=== PATIENT | female | born 1990 | race Caucasian/White ===

== ENCOUNTER 2019-01-18 06:50 | Observation (INO) ==
--- NOTE | 2019-01-18 07:23 | PROVIDER DOCUMENTATION ---
[id number] Abuse/Overdose - General Chief Complaint: Overdose Stated Complaint: overdose Time Seen by Provider: 01/18/19 07:16 Source: EMS Allergies/Adverse Reactions: Allergies Allergy/AdvReac Type Severity Reaction Status Date / Time No Known Allergies Allergy Verified 06/18/18 11:05 Home Medications: Home Medication List Medication Instructions Recorded Confirmed Last Taken Type Cephalexin [Keflex] 500 mg PO TID #20 capsule 06/01/17 Unknown Rx Promethazine [Phenergan] 25 mg PO Q6H PRN PRN #20 tablet 06/01/17 Unknown Rx - History of Present Illness-Drug/Alcohol Nature of Presenting Problem: some one was going to their car to go to work only to find someone od in the car.brought by ems fire gave nasal narcan plus two mg enroute responded she mumbled she had taken 3 oxycontin This episode of drinking or use began:: 1/2 hour ago Severity: reports: moderate Situational problems related to:: reports: N/A Psychiatric Complaints: reports: other (hx of opiate abuse) Any injuries associated with this episode of intoxication?: No Similar Symptoms Previously?: Yes Recently seen or treated by another doctor?: No Review of Systems - Adult - REVIEW OF SYSTEMS - ADULT ROS:: unobtainable per condition Constitutional: reports: no symptoms reported Past History - Adult - PAST MEDICAL HISTORY-ADULT Review of Records: reports: Old Records Reviewed, Nursing Assessment Review, Medications Reviewed, Social history reviewed & non-contributory. - IMMUNIZATION STATUS Childhood Immunizations: See Nurse Assessment Flu Vaccine: See Nurse Assessment Physical Exam-General - PHYSICAL EXAM-ADULT Initial Vital Signs Reviewed: Yes - CONSTITUTIONAL General Appearance: obtunded - EYES Eyes: PERRL/EOMI, other (pinpoint pupils) - HEAD, EARS, NOSE, MOUTH & THROAT HENMT: normocephalic/atraumatic - NECK Neck: non-tender, full range of motion, supple - RESPIRATORY Respiratory: lungs clear - CARDIOVASCULAR Cardiovascular: regular rate, rhythm - GASTROINTESTINAL (ABDOMEN) Abdominal Exam: soft, other (striae) - LYMPHATIC Lymphatic: no adenopathy - MUSCULOSKELETAL Back Exam: normal inspection Extremity: non-tender - SKIN Integumentary: normal color, normal turgor - NEUROLOGIC Neurologic: grossly normal - PSYCHIATRIC Psych/Mental Status: depressed affect Progress - PLAN OF CARE/RESULTS Progress/Plan/Lab Results: Vital Signs - 8 hr 01/18/19 06:53 Temperature 96.3 F L Pulse Rate 80 Respiratory Rate 16 Blood Pressure 117/89 O2 Sat by Pulse Oximetry 98 Laboratory Results - last 24 hr 01/18/19 01/18/19 01/18/19 06:57 07:04 07:31 WBC 9.88 RBC 4.67 Hgb 14.0 Hct 41.8 MCV 89.5 MCH 30.0 MCHC 33.5 RDW Std Deviation 13.9 Plt Count 292 MPV 9.7 Immature Gran % (Auto) 0.1 Neut % (Auto) 33.3 L Lymph % (Auto) 54.3 H Harvey % (Auto) 10.3 H Eos % (Auto) 1.6 Baso % (Auto) 0.4 Immature Gran # (Auto) 0.01 Neut # (Auto) 3.29 Lymph # (Auto) 5.36 H Harvey # (Auto) 1.02 H Eos # (Auto) 0.16 Baso # (Auto) 0.04 POC Glucose 101 Urine Opiates Screen PRESUMPTIVE POSITIVE A Ur Oxycodone Screen NONE DETECTED Urine Methadone Screen NONE DETECTED U Propoxyphene Qual NONE DETECTED Ur Barbituates Screen NONE DETECTED Ur Tricyclics Screen NONE DETECTED Ur Phencyclidine Scrn NONE DETECTED Ur Amphetamines Screen PRESUMPTIVE POSITIVE A U Methamphetamines Scrn PRESUMPTIVE POSITIVE A U Benzodiazepines Scrn PRESUMPTIVE POSITIVE A Urine Cocaine Screen NONE DETECTED U Cannabinoids Screen PRESUMPTIVE POSITIVE A Orders Category Date Time Status Cardiac Monitoring DIRECTED Care 01/18/19 07:19 Active Gaxiola Cath Insertion ORDERED Care 01/18/19 07:02 Active Nursing- Obtain EKG ONCE Care 01/18/19 07:17 Active Saline Loc NOW Care 01/18/19 07:19 Active ABG [RESP] Routine Lab 01/18/19 07:02 Ordered ACETAMINOPHEN [TDM] Stat Lab 01/18/19 07:31 Received ALCOHOL BLOOD Stat Lab 01/18/19 07:31 Received CBC WITH ELECTRONIC DIFF [HEME] Stat Lab 01/18/19 07:31 Completed CK PROFILE [SP CHEM] Stat Lab 01/18/19 07:31 Received COMPREHENSIVE METABOLIC PANEL [CHEM] Stat Lab 01/18/19 07:31 Received SALICYLATES [TDM] Stat Lab 01/18/19 07:31 Received TROPONIN T Stat Lab 01/18/19 07:[address] DRUG S[address]EN [address] Stat Lab 01/18/19 07:04 Completed Result Diagrams: 01/18/19 07:31 Departure - Departure Date of Disposition Decision: 01/18/19 Time of Disposition Decision: 08:00 DIAGNOSIS: Overdose of analgesic Disposition: ADMITTED INPATIENT 09 Certified Medical Emergency: Emergent Condition: Stable - Critical Care Note This patient required my direct & personal management of CC.: Yes Total Time (mins): 30 Critical Care Statement: This patient required my direct personal management to treat or rule out processes, the absence of which, could potentiallly result in sudden, clinically significant life or limb threatening deterioration. Attestation - Physician/ ZAINAB Attestation Patient care was provided by Advanced Practice Provider:: No The physician spent face to face time with patient:: Yes Advanced Practice Provider documentation review:: Supervising physician onsite and consulted in the evaluation and care of this patient. The physician did have a face to face encounter with the patient.
[2019-01-18 07:44] LABS: UR AMPHETAMINES QUAL PRESUMPTIVE POSITIVE (NONE DETECT); UR BARBITUATES QUAL NONE DETECTED (NONE DETECT); UR BENZODIAZEPIN QUAL PRESUMPTIVE POSITIVE (NONE DETECT); UR CANNABINOIDS QUAL PRESUMPTIVE POSITIVE (NONE DETECT); UR COCAINE QUAL NONE DETECTED (NONE DETECT); UR METHADONE QUAL NONE DETECTED (NONE DETECT); UR METHAMPHETAMINE QUAL PRESUMPTIVE POSITIVE (NONE DETECT); UR OPIATES QUAL PRESUMPTIVE POSITIVE (NONE DETECT); UR OXYCODONE QUAL NONE DETECTED (NONE DETECT); UR PCP QUAL NONE DETECTED (NONE DETECT); UR PROPOXYPHENE QUAL NONE DETECTED (NONE DETECT); UR TCA QUAL NONE DETECTED (NONE DETECT)
[2019-01-18 07:48] LABS: BASO# 0.04 X1000 (0.0-0.2); BASO% 0.4 % (0.0-0.8); EOS# 0.16 X1000 (0.0-0.7); EOS% 1.6 % (0.0-10.0); HEMATOCRIT 41.8 % (37.0-47.0); IMM GRAN# 0.01 X1000 (0.0-0.04); IMM GRAN% 0.1 % (0.0-0.5); LYMPH# 5.36 X1000 (1.2-3.4); LYMPH% 54.3 % (20.5-51.1); MCHC 33.5 g/dL (33-37); MCV 89.5 FL (81-99); MONO# 1.02 X1000 (0.11-0.59); MONO% 10.3 % (1.7-9.3); MPV 9.7 FL (7.4-10.4); NEUT# 3.29 X1000 (1.4-6.5); NEUT% 33.3 % (42.2-75.2); PLT 292 X1000 (130-400); RBC 4.67 XMIL (4.2-5.4); RDW 13.9 % (11.5-14.5); WBC 9.88 X1000 (4.8-10.8)
[2019-01-18 08:06] LABS: ACETAMINOPHEN < 1.2 ug/mL (10-30); AGAP 11; ALBUMIN 4.4 g/dL (3.5-5.0); ALKALINE PHOSPHATASE 83 U/L (32-104); BUN 14 mg/dL (8-22); CHLORIDE 105 mmol/L (98-107); COSMO 280; CREATININE 0.6 mg/dL (0.5-0.9); ESTIMATED GFR > 60; GLUCOSE 95 mg/dL (70-104); GOT 14 U/L (10-30); GPT 13 U/L (10-36); POTASSIUM 4.3 mmol/L (3.5-5.1); SALICYLATES < 3.00 mg/dL (3-10); SODIUM 140 mmol/L (136-145); TCO2 24 mmol/L (25-35); TOTAL PROTEIN 7.7 g/dL (6.3-8.3)
[2019-01-18] MEDS ORDERED: NARCAN IV ONE (08:12)
[2019-01-18] MEDS ORDERED: NS 1,000 ML IV ONE ×2 (08:13→09:04)
[2019-01-18] MEDS ORDERED: ZOFRAN IV PRN (09:59)
[2019-01-18] MEDS ORDERED: SODIUM CHLORIDE 0.9% INJ SCH (10:15)
[2019-01-18] MEDS ORDERED: PROTONIX IV SCH (10:15)
[2019-01-18 11:09] LABS: BILIRUBIN URINE 1+ (NEGATIVE); BLOOD URINE TRACE (NEGATIVE); CLARITY VERY CLOUDY (CLEAR); COLOR YELLOW; GLUCOSE URINE NEGATIVE (NEGATIVE); KETONE URINE TRACE mg/dL (NEGATIVE); LEUKOCYTES URINE 1+ (NEGATIVE); NITRITE URINE NEGATIVE (NEGATIVE); PROTEIN URINE TRACE mg/dL (NEGATIVE); UROBILINOGEN URINE 4 mg/dL
[2019-01-18 11:10] LABS: URINE BACTERIA 4+ /HFP; URINE CAST NONE SEEN /LPF; URINE EPITHELIAL CELLS <10 /HPF (<10); URINE RBC <10 /HPF (<10); URINE WBC TNTC /HPF (<10); URINE YEAST NONE SEEN /HPF
--- NOTE | 2019-01-18 11:10 | HISTORY AND PHYSICAL ---
PRIMARY CARE PROVIDER: None. CHIEF COMPLAINT: Overdose. HISTORY OF PRESENT ILLNESS: Ms. Cleveland is a 28-year-old female who carries a past medical history of opiate abuse. Her drug of choice is heroin, per her mother at the bedside. Per ED report, she was found slumped over in a car. She was brought in by EMS and was given nasal Narcan plus 2 mg en route. She told responders that she had taken 3 OxyContin. Her toxicology screen is positive for opiates, amphetamines, methamphetamines, benzodiazepines, and cannabinoids. Other laboratory data is essentially unremarkable. She was admitted to the ICU. We will continue with aggressive IV hydration. The patient is still somewhat obtunded. She does arouse with aggressive physical stimuli with a sternal rub. She mumbles. She did open her eyes. She sat up for a second and laid down and went right back to sleep. PAST MEDICAL HISTORY: Opiate abuse. Drug of choice: Heroin. PAST SURGICAL HISTORY: None. SOCIAL HISTORY: She lives in [place]. She is , though I believe they are going through divorce. She does have a boyfriend. She has 3 children, one that lives with the father in [place] and 2 that lives with their father in [place]. Per mother's report, her drug of choice is shooting up heroin and will only occasionally drink alcohol. No known tobacco use. FAMILY HISTORY: Reviewed and noncontributory. ALLERGIES: No known drug allergies. HOME MEDICATIONS: None. REVIEW OF SYSTEMS: Unable to obtain secondary to the patient being obtunded. PHYSICAL EXAMINATION: VITAL SIGNS: Temporal artery temperature 96.1 degrees, heart rate 56, respirations 20, blood pressure 108/71, O2 is 100% on room air. GENERAL: Ms. Cleveland is a 28-year-old female, who is lying in the ICU bed, sleeping, very sedated. She wakes to aggressive sternal rub. In no acute distress. HEENT: Atraumatic, normocephalic. PERRL. NECK: Supple. Trachea midline. CARDIOVASCULAR: S1, S2 appreciated. No murmurs, gallops, rubs noted. CHEST: Clear bilaterally. GASTROINTESTINAL: Soft, nontender. Hypoactive bowel sounds 4 quadrants. EXTREMITIES: Bilateral pedal pulses are palpable. No lower extremity edema or cyanosis. NEUROLOGIC: The patient is somewhat obtunded. She does awaken to an aggressive sternal rub. She did sit up on the bed, I made her aware of her surrounding, and the patient laid back down and fell back asleep. DIAGNOSTIC DATA: None. LABORATORY DATA: White count 9, hemoglobin 14, hematocrit 41, platelet count is 292,000. Sodium 140, potassium 4.3, BUN 14, creatinine 0.6, blood glucose is 95. Toxicology screen positive for opiates, amphetamines, methamphetamines, benzodiazepines, and cannabinoids. ASSESSMENT AND PLAN: 1. Drug overdose. Per emergency department report, the patient had taken 3 OxyContin. Her toxicology screen is positive for multiple medications. We will continue with aggressive IV hydration. Frequent neurological checks. Get [facility] involved for a possible rehabilitation placement if patient is agreeable. 2. Toxic metabolic encephalopathy secondary to #1. 3. Known history of intravenous heroin use. Aware. Further recommendation to follow physician evaluation and laboratory and diagnostic data. CRITICAL CARE TIME: 30 minutes. Dictated by ALYSSA Kerr for Shadi Peres MD cc: Shadi Peres MD
[2019-01-18 11:11] LABS: URINE CRYSTAL NONE SEEN /HPF; URINE SOURCE CATH
[2019-01-18] MEDS ORDERED: ROCEPHIN 1 GM in NS 50 ML IV SCH (16:30)
--- NOTE | 2019-01-18 16:35 | HISTORY AND PHYSICAL ---
HISTORY AND PHYSICAL - ADDENDUM: The patient presented obtunded. She was found in her boyfriend's car and brought to the hospital. She has a history of heroin abuse. She reports last usage 4 months ago. She was given Narcan and improved. Now, she told responders that she had taken OxyContin. She did not admit that to me. She states, though, that 2 to 3 days ago she did use methamphetamine and I think she also admits to using IV heroin or IV narcotic two days ago. Her story fluctuates to some degree. She is awake and alert, oriented now. This was an unintentional overdose or recreational overdose. This was not an attempt on her life. However, her UDS is positive for everything or multiple things, opiates, not oxycodone despite her claiming she took that, amphetamines, methamphetamines which she did admit to taking, benzo's which she did admit to taking. She said she took several bars I believe of Xanax and THC. Her exam is unremarkable. She looks like she also probably has a UTI. We will monitor her, give her supportive treatment. We discussed about drug rehab options and she has to be committed to taking it. If stable, likely discharge in the next 24 hours. cc: Shadi Peres MD
[2019-01-18 17:00] LABS: UR AMPHETAMINES QUAL PRESUMPTIVE POSITIVE (NONE DETECT); UR BARBITUATES QUAL NONE DETECTED (NONE DETECT); UR BENZODIAZEPIN QUAL PRESUMPTIVE POSITIVE (NONE DETECT); UR CANNABINOIDS QUAL PRESUMPTIVE POSITIVE (NONE DETECT); UR COCAINE QUAL NONE DETECTED (NONE DETECT); UR METHADONE QUAL NONE DETECTED (NONE DETECT); UR METHAMPHETAMINE QUAL PRESUMPTIVE POSITIVE (NONE DETECT); UR OPIATES QUAL PRESUMPTIVE POSITIVE (NONE DETECT); UR OXYCODONE QUAL NONE DETECTED (NONE DETECT); UR PCP QUAL NONE DETECTED (NONE DETECT); UR PROPOXYPHENE QUAL NONE DETECTED (NONE DETECT); UR TCA QUAL NONE DETECTED (NONE DETECT)
[2019-01-18 21:08] VITALS: BP 113/76
[2019-01-19 21:00] LABS: HIV ANTIBODY SCREEN SEE COMMENTS
== END 2019-01-18 19:55 | disposition home or self-care (01) ==
LOC: P.ED 06:50 → P.ICU 06:50
PROVIDERS: ATTEND Internal Medicine
CPT/HCPCS: 51702; 80053; 80104; 80196; 80301; 80305; 80307; 80320; 80324; 80329; 81001; 81025; 82003; 82055; 82550; 82948; 84484; 85025; 86701; 87077; 87088; 87186; 87389; 96374; 99285; C9113; G0431; G0434; G0477; G0480; G6038; G6039; G6040; J0696; J2310; J7030; S0164; XXXXX